=== PATIENT | female | born 1975 | race Native Hawaiian/Other Pacific Islander ===

== ENCOUNTER 2017-02-27 12:56 | Outpatient (CLI) | payer OTHER ==
[~2017-02-27 12:56] MED LIST: AMOX500C85 PO; CEFD300C2 PO; CETRAXAL0.2 % OT; CORICIDN HBP OR; FLUT0.05 NAS; Z-PAK PO
== END 2017-02-27 19:11 | disposition home or self-care (01) ==
LOC: MAMMO 12:56
DX: Z12.31 Encounter for screening mammogram for malignant neoplasm of breast (principal)
CPT/HCPCS: G0202-TC

== ENCOUNTER 2018-01-07 11:43 | Day surgery (SDC) | payer OTHER | END 2018-01-07 15:36 | disposition home or self-care (01) | LOC: OR 11:43 | PROC: 0DJD8ZZ Inspection of Lower Intestinal Tract, Via Natural or Artificial Opening Endoscopic (ICD-10-PCS; principal; 2018-01-07) | DX: K64.8 Other hemorrhoids (principal); Z80.0 Family history of malignant neoplasm of digestive organs; R19.4 Change in bowel habit | CPT/HCPCS: J2704 ==

== ENCOUNTER 2018-03-02 09:29 | Outpatient (CLI) | payer OTHER | END 2018-03-02 20:44 | disposition home or self-care (01) | LOC: MAMMO 09:29 | DX: Z12.31 Encounter for screening mammogram for malignant neoplasm of breast (principal) ==

== ENCOUNTER 2019-03-04 10:07 | Outpatient (CLI) | payer OTHER | END 2019-03-04 19:49 | disposition home or self-care (01) | LOC: MAMMO 10:07 | DX: R22.9 Localized swelling, mass and lump, unspecified (principal); Z12.31 Encounter for screening mammogram for malignant neoplasm of breast ==

== ENCOUNTER 2019-08-18 09:50 | Outpatient (CLI) | payer OTHER | END 2019-08-18 19:10 | disposition home or self-care (01) | LOC: CT 09:50 | DX: R22.1 Localized swelling, mass and lump, neck (principal) | CPT/HCPCS: 36415; 82565; 84520; Q9963 ==

== ENCOUNTER 2020-10-04 08:42 | Observation (INO) | payer OTHER ==
[~2020-10-04] VITALS: Ht 172.7 cm; Wt 88.0 kg
[2020-10-04 17:07] VITALS: BP 135/86; TEMP 97.7; Ht 172.7 cm; Wt 88.0 kg
[2020-10-04 18:21] LABS: PLATELET COUNT 236 K/uL (152-353)
[2020-10-04 18:42] LABS: POTASSIUM 3.9 mmol/L (3.6-5.2)
[2020-10-04 20:00] VITALS: BP 125/71; TEMP 97.6
[2020-10-05] VITALS: BP 114/74; TEMP 97.7
[2020-10-05 04:00] VITALS: BP 97/59; TEMP 98
[2020-10-05] MEDS ORDERED: AMIT25TA22 PO (06:20)
[2020-10-05 08:00] VITALS: BP 91/54; TEMP 98.1
[2020-10-05 09:17] LABS: PLATELET COUNT 224 K/uL (152-353)
[2020-10-05 09:56] LABS: POTASSIUM 4.1 mmol/L (3.6-5.2)
[2020-10-05 12:00] VITALS: BP 111/69; TEMP 97.9
[2020-10-05 16:00] VITALS: BP 119/69; TEMP 98.3
== END 2020-10-05 18:53 | disposition home or self-care (01) ==
LOC: RAD 08:42 → MED/SURG 16:43
PROVIDERS: ADMIT Family Medicine; ATTEND Family Medicine
DX: J15.1 Pneumonia due to Pseudomonas (principal); J20.8 Acute bronchitis due to other specified organisms
CPT/HCPCS: 36415; 36591; 80053; 83735; 84100; 85027; 87040; 87070; 87077; 87186; 87205; 93005; 94640; 94664; 94760; 96365; 96366; 96367; 99220; G0378; J0456; J0696; J2001; J2930

== ENCOUNTER 2021-01-24 12:46 | Outpatient (CLI) | payer OTHER ==
[~2021-01-24 12:46] MED LIST changes: +AMIT25TA22 PO
== END 2021-01-24 22:05 | disposition home or self-care (01) ==
LOC: MAMMO 12:46
PROVIDERS: ATTEND Specialist
DX: Z12.31 Encounter for screening mammogram for malignant neoplasm of breast (principal)